=== PATIENT | male | born 1950 | race Caucasian/White ===

== ENCOUNTER 2019-08-03 11:13 | Inpatient (IN) | payer OTHER ==
[~2019-08-03] VITALS: Ht 182.9 cm; Wt 105.5 kg
[~2019-08-03 11:13] MED LIST: ALBU8.5H8 IH; ALLO100T PO; ALPR-623 PO; AMMO225L14 TL; CARV-50 PO; CETI10TA15 PO; CHOL100046 PO; CYAN500T15 PO; DOCU100C40 PO; GABA-530 PO; LEVO100T9 PO; LEVO25TA7 PO; LOSA50TA3 PO; METF500T20 PO; MUPI22OI30 TOP; NITR0.4T48 SL; OMEG500C PO; OMEP20CA15 PO; PARO40TA4 PO; RIVA20TA PO; ROSU40TA PO
--- NOTE | 2019-08-03 11:38 | NUR ---
bladder scan completed at bedside showed volume of 334 ml. Pt has granados cath in place MOLDER FLOOR, pt reports poor drainage x 3 days. Pt has noticed blood clots.
[2019-08-03] MEDS ORDERED: normal saline 1000ML IV soln IV ONE (12:25)
[2019-08-03] MEDS ORDERED: vancomycin/NS 1 GM ADD-VANTAGE 250 ML IV ONE (12:25)
[2019-08-03] MEDS ORDERED: CefTRIAXone 2gm/D5W 50ml 50 ML IV ONE (12:25)
[2019-08-03] MEDS ORDERED: ondansetron/PF 4mg/2ml inj IV ONE (12:50)
[2019-08-03] MEDS ORDERED: morphine 4 MG/ML inj SYRINge IV ONE (12:50)
[2019-08-03 12:58] LABS: BASOPHILS # (AUTO) 0.1 X10'3 (0-0.2); BASOPHILS % (AUTO) 0.6 % (0-1); EOSINOPHILS % (AUTO) 0.4 % (0-6); HEMATOCRIT 34.8 % (42.0-52.0); HEMOGLOBIN 11.2 g/dl (14.0-17.9); LYMPHOCYTES # (AUTO) 1.4 X10'3 (1.1-4.8); LYMPHOCYTES % (AUTO) 11.2 % (21-51); MEAN CORPUSCULAR HEMOGLOBIN 30.6 PG (27.0-31.0); MEAN CORPUSCULAR HGB CONC 32.2 g/dL (33.0-36.5); MEAN CORPUSCULAR VOLUME 95.3 FL (78-98); MEAN PLATELET VOLUME 9.1 FL (7.4-10.4); MONOCYTES # (AUTO) 1.2 X10'3 (0-0.9); MONOCYTES % (AUTO) 9.3 % (2-12); NEUTROPHILS % (AUTO) 78.5 % (42-75); PLATELET COUNT 525 X10'3 (140-440); RED BLOOD COUNT 3.65 X10'6 (4.70-6.10); RED CELL DISTRIBUTION WIDTH 16.9 % (11.5-14.5); WHITE BLOOD COUNT 12.7 X10'3 (4.5-11.0)
[2019-08-03 13:06] LABS: PARTIAL THROMBOPLASTIN TIME 29 SECONDS (22-32)
[2019-08-03 13:17] LABS: ALANINE AMINOTRANSFERASE 24 U/L (12-78); ALBUMIN/GLOBULIN RATIO 0.5 (1.1-1.5); ALKALINE PHOSPHATASE 62 IU/L (46-116); ANION GAP 19 (8-16); ASPARTATE AMINO TRANSFERASE 42 U/L (10-37); BILIRUBIN,TOTAL 0.6 MG/DL (0.1-1.0); BLOOD UREA NITROGEN 55 MG/DL (7-18); BUN/CREATININE RATIO 15.7 (5.4-32.0); CHLORIDE 103 MMOL/L (99-107); GLUCOSE 107 MG/DL (70-104); POTASSIUM 4.5 MMOL/L (3.5-5.1); SODIUM 138 MMOL/L (135-145); TOTAL CARBON DIOXIDE 15.9 MMOL/L (24-32); TOTAL PROTEIN 8.9 G/DL (6.4-8.2); eGFR 17 ML/MIN
[2019-08-03 13:20] LABS: HEMOGLOBIN A1C 6.5 % (4.5-6.2)
[2019-08-03 13:22] LABS: MAGNESIUM 1.8 MG/DL (1.5-2.4)
[2019-08-03] MEDS ORDERED: diltiazem 5mg/ml 5ml inj. IV ONE (13:55)
[2019-08-03] MEDS ORDERED: LIDOcaine 2% 10ml TOPICAL JELLY (Urojet) TP ONE (16:30)
[2019-08-03 16:46] LABS: CLARITY,URINE CLOUDY (Clear); COLOR,URINE RED (Yellow)
[2019-08-03 17:08] LABS: UA COLLECTION TYPE FOLEY CATH
[2019-08-03 17:10] LABS: RBC,URINE TNTC /HPF (0-2); WBC,URINE 50-100 /HPF (0-4)
[2019-08-03 17:11] LABS: BACTERIA,URINE 1+ /HPF (Neg); MUCUS STRANDS FEW /LPF (Neg); SQUAMOUS EPITHELIAL CELL,UR FEW /LPF (FEW)
[2019-08-03] MEDS ORDERED: FURO-150 PO (17:45)
[2019-08-03] MEDS ORDERED: LEVO75TA7 PO (17:45)
[2019-08-03] MEDS ORDERED: MYL80T PO (17:45)
[2019-08-03] MEDS ORDERED: POTA-82 PO (17:45)
[2019-08-03] MEDS ORDERED: METO200T49 PO (17:45)
[2019-08-03] MEDS ORDERED: RIVA20TA PO (17:45)
[2019-08-03] MEDS ORDERED: HYDR-4353 PO (17:45)
[2019-08-03] MEDS ORDERED: RANI150T8 PO (17:45)
[2019-08-03] MEDS ORDERED: magnesium hydroxide 30ml (MOM) UD suspension PO PRN (19:25)
[2019-08-03] MEDS ORDERED: magnesium 2GM in 50ml NS 50 ML IV PRN (19:25)
[2019-08-03] MEDS ORDERED: magnesium 4gm in 100ml NS 100 ML IV PRN (19:25)
[2019-08-03] MEDS ORDERED: ondansetron/PF 4mg/2ml inj IV PRN (19:25)
[2019-08-03] MEDS ORDERED: potassium CL 10mEq/100ml bag 100 ML IV PRN ×2 (19:25)
[2019-08-03] MEDS ORDERED: potassium Cl 20 mEq SR tablet PO PRN ×2 (19:25)
[2019-08-03] MEDS ORDERED: magnesium Cl slow-release 64mg tablet PO PRN (19:25)
[2019-08-03] MEDS ORDERED: acetaminophen 325mg tablet PO PRN (19:25)
[2019-08-03] MEDS: K and/or MAG REPLACEMENT MC SCH (19:53)
[2019-08-03] MEDS: morphine 2 MG/ML inj. syringe IV PRN (20:06)
[2019-08-03 21:00] VITALS: BP 153/75
[2019-08-03] MEDS: potassium cl 20mEq in 1/2 NS 1,000 ML IV SCH (21:34)
[2019-08-03] MEDS ORDERED: dextrose 50%-water 50ml dispensing syringe IV PRN ×2 (22:25)
[2019-08-03] MEDS ORDERED: MESSAGE TO PHARMACY PO ONE (22:25)
[2019-08-03] MEDS ORDERED: insulin Lispro (HumaLOG) vial - multi-dose SQ SCH (22:25)
[2019-08-03] MEDS ORDERED: glucagon, human recombinant 1mg kit SUBCUT PRN (22:25)
[2019-08-03] MEDS ORDERED: dextrose ORAL solution 15 GM/59 ML bottle PO PRN ×2 (22:25)
[2019-08-04] VITALS: BP 101/61
[2019-08-04] MEDS: HYDROcodone/acetaminophen 5mg/325mg tablet PO PRN ×2 (00:22→20:13)
[2019-08-04 05:22] LABS: BASOPHILS # (AUTO) 0.1 X10'3 (0-0.2); BASOPHILS % (AUTO) 0.9 % (0-1); EOSINOPHILS # (AUTO) 0.3 X10'3 (0-0.9); EOSINOPHILS % (AUTO) 3.4 % (0-6); HEMATOCRIT 28.5 % (42.0-52.0); HEMOGLOBIN 9.3 g/dl (14.0-17.9); LYMPHOCYTES # (AUTO) 1.6 X10'3 (1.1-4.8); LYMPHOCYTES % (AUTO) 17.5 % (21-51); MEAN CORPUSCULAR HEMOGLOBIN 30.9 PG (27.0-31.0); MEAN CORPUSCULAR HGB CONC 32.7 g/dL (33.0-36.5); MEAN CORPUSCULAR VOLUME 94.4 FL (78-98); MEAN PLATELET VOLUME 8.8 FL (7.4-10.4); MONOCYTES # (AUTO) 1.2 X10'3 (0-0.9); MONOCYTES % (AUTO) 12.9 % (2-12); NEUTROPHILS # (AUTO) 6.2 X10'3 (1.8-7.7); NEUTROPHILS % (AUTO) 65.3 % (42-75); PLATELET COUNT 405 X10'3 (140-440); RED BLOOD COUNT 3.02 X10'6 (4.70-6.10); RED CELL DISTRIBUTION WIDTH 16.8 % (11.5-14.5); WHITE BLOOD COUNT 9.4 X10'3 (4.5-11.0)
[2019-08-04] MEDS: potassium cl 20mEq in 1/2 NS 1,000 ML IV SCH ×3 (05:22→23:47)
--- NOTE | 2019-08-04 06:15 | NUR ---
Problems reprioritized. Patient report given, questions answered & plan of care reviewed with Sydnie KEE. Addendum: 08/04/19 at 0615 by Griselda Wolfe RN Amended: Links added.
[2019-08-04 06:26] LABS: % IRON SATURATION 7 % (11-46); IRON 20 UG/DL (53-167); TOTAL IRON BINDING CAPACITY 296 UG/DL (259-388)
[2019-08-04 06:42] LABS: ALANINE AMINOTRANSFERASE 23 U/L (12-78); ALBUMIN 2.4 G/DL (3.4-5.0); ALBUMIN/GLOBULIN RATIO 0.5 (1.1-1.5); ALKALINE PHOSPHATASE 52 IU/L (46-116); ANION GAP 14 (8-16); ASPARTATE AMINO TRANSFERASE 41 U/L (10-37); BILIRUBIN,TOTAL 0.4 MG/DL (0.1-1.0); BLOOD UREA NITROGEN 47 MG/DL (7-18); BUN/CREATININE RATIO 24.5 (5.4-32.0); CALCIUM 8.5 MG/DL (8.5-10.1); CHLORIDE 107 MMOL/L (99-107); CHOL/HDL RATIO 2.4 (0.00-4.99); CHOLESTEROL 92 MG/DL (0-200); CREATININE 1.92 MG/DL (0.60-1.10); GLUCOSE 94 MG/DL (70-104); HDL CHOLESTEROL 39 MG/DL (35-60); LDL CHOLESTEROL 39 MG/DL (50-100); MAGNESIUM 1.6 MG/DL (1.5-2.4); SODIUM 138 MMOL/L (135-145); TOTAL CARBON DIOXIDE 16.6 MMOL/L (24-32); TOTAL PROTEIN 7.1 G/DL (6.4-8.2); TRIGLYCERIDES 75 MG/DL (20-135); eGFR 35 ML/MIN
--- NOTE | 2019-08-04 06:49 | NUR ---
Patient in room [facility]. I have received report from faustina KEE and had the opportunity to ask questions and assume patient care.
[2019-08-04 06:51] LABS: FERRITIN 88 NG/ML (26-388)
[2019-08-04 06:56] VITALS: BP 108/72
[2019-08-04] MEDS: CefTRIAXone/D5W-Rocephin 1gm 50 ML IV SCH (07:08)
[2019-08-04] MEDS: K and/or MAG REPLACEMENT MC SCH ×2 (08:00→20:00)
[2019-08-04] MEDS ORDERED: heparin, porcine 5000 units/ml vial SQ SCH (08:00)
[2019-08-04 12:12] VITALS: BP 93/71
[2019-08-04] MEDS ORDERED: VANCOMYCIN 1,500MG inj. 1,500 MG in normal saline 500ml IV soln 500 ML IV SCH (16:00)
--- NOTE | 2019-08-04 16:24 | NUR ---
patient continues with hematuria, confused at times. PBNP 3398, HR 108-128 , home meds still need addressing, DR Hauser aware. Continues with Rocephin and started on Vancomycin. Ambulated with PT 300ft. Did obtain prn order for sitter if patient continues to become more confused. Spoke with family member, and went through verifying last taken doses of home meds.. Awaiting any new orders from DR Hauser. will continue to monitor.
--- NOTE | 2019-08-04 16:28 | NUR ---
EKG done and showed to Dr yao.
--- NOTE | 2019-08-04 18:11 | NUR ---
Problems reprioritized. Patient report given, questions answered & plan of care reviewed with faustina KEE.
[2019-08-04 19:00] VITALS: BP 123/63
[2019-08-04 19:43] LABS: OCCULT BLOOD STOOL POSITIVE (Neg)
[2019-08-04] MEDS: lactobacillus rhamnosus 10,000 MMU CELLS/CAPSULE PO SCH (20:12)
--- NOTE | 2019-08-04 20:35 | NUR ---
Dr. Sorenson notified of pts Occult (+), she is aware of hematuria, and Afib. order to d/c heparin SQ and place SCDs for now. Will continue to monitor and treat. Addendum: 08/04/19 at 2035 by Griselda Wolfe RN Amended: Links added.
[2019-08-04] MEDS: insulin glargine (Lantus) pen - multi-dose SQ SCH (21:00)
[2019-08-04 23:55] VITALS: BP 131/64
[2019-08-05] MEDS: mag hydrox/Alum hydrox/simeth 30ml oral suspension PO PRN ×2 (01:08→17:18)
[2019-08-05] MEDS: HYDROcodone/acetaminophen 5mg/325mg tablet PO PRN (02:29)
[2019-08-05 07:00] VITALS: BP 136/81
[2019-08-05] MEDS: lactobacillus rhamnosus 10,000 MMU CELLS/CAPSULE PO SCH ×2 (07:21→19:33)
[2019-08-05] MEDS: CefTRIAXone/D5W-Rocephin 1gm 50 ML IV SCH (07:21)
[2019-08-05 07:40] VITALS: BP 136/81
[2019-08-05] MEDS: K and/or MAG REPLACEMENT MC SCH ×2 (08:00→18:57)
--- NOTE | 2019-08-05 09:50 | NUR ---
NOTIFIED DR GUNN RE HEMATURIA. STATES SHE WILL CONSULT UROLOGY.
[2019-08-05] MEDS: potassium cl 20mEq in 1/2 NS 1,000 ML IV SCH ×2 (10:01→19:34)
[2019-08-05 11:15] LABS: BASOPHILS % (AUTO) 0.4 % (0-1); EOSINOPHILS # (AUTO) 0.1 X10'3 (0-0.9); EOSINOPHILS % (AUTO) 1.3 % (0-6); HEMATOCRIT 31.3 % (42.0-52.0); HEMOGLOBIN 10.2 g/dl (14.0-17.9); LYMPHOCYTES # (AUTO) 1.4 X10'3 (1.1-4.8); LYMPHOCYTES % (AUTO) 13.7 % (21-51); MEAN CORPUSCULAR HEMOGLOBIN 30.9 PG (27.0-31.0); MEAN CORPUSCULAR HGB CONC 32.6 g/dL (33.0-36.5); MEAN CORPUSCULAR VOLUME 94.8 FL (78-98); MEAN PLATELET VOLUME 8.7 FL (7.4-10.4); MONOCYTES # (AUTO) 1.2 X10'3 (0-0.9); MONOCYTES % (AUTO) 11.7 % (2-12); NEUTROPHILS # (AUTO) 7.7 X10'3 (1.8-7.7); NEUTROPHILS % (AUTO) 72.9 % (42-75); PLATELET COUNT 424 X10'3 (140-440); RED CELL DISTRIBUTION WIDTH 16.6 % (11.5-14.5); WHITE BLOOD COUNT 10.6 X10'3 (4.5-11.0)
[2019-08-05 11:28] LABS: ALANINE AMINOTRANSFERASE 31 U/L (12-78); ALBUMIN 2.6 G/DL (3.4-5.0); ALBUMIN/GLOBULIN RATIO 0.5 (1.1-1.5); ALKALINE PHOSPHATASE 60 IU/L (46-116); ANION GAP 10 (8-16); ASPARTATE AMINO TRANSFERASE 53 U/L (10-37); BILIRUBIN,TOTAL 0.4 MG/DL (0.1-1.0); BLOOD UREA NITROGEN 22 MG/DL (7-18); BUN/CREATININE RATIO 17.3 (5.4-32.0); CALCIUM 8.5 MG/DL (8.5-10.1); CHLORIDE 106 MMOL/L (99-107); CREATININE 1.27 MG/DL (0.60-1.10); GLUCOSE 110 MG/DL (70-104); MAGNESIUM 1.8 MG/DL (1.5-2.4); POTASSIUM 4.2 MMOL/L (3.5-5.1); SODIUM 137 MMOL/L (135-145); TOTAL CARBON DIOXIDE 20.9 MMOL/L (24-32); TOTAL PROTEIN 8.1 G/DL (6.4-8.2); eGFR 56 ML/MIN
[2019-08-05 12:01] VITALS: BP 132/82
[2019-08-05] MEDS: VANCOMYCIN 1,500MG inj. 1,500 MG in normal saline 500ml IV soln 500 ML IV SCH (13:41)
--- NOTE | 2019-08-05 14:49 | NUR ---
IRRIGATED FC WITH 60 MLS NS. NO BLOOD CLOTS ASPIRATED AT THIS TIME. WILL CONT TO MONITOR.
--- NOTE | 2019-08-05 16:15 | NUR ---
PAGED DR GUNN AT [id number] TO NOTIFY PT HR 130-150S AND MED REC NEEDS TO BE ADDRESSED. NO RESPONSE AT THIS TIME
[2019-08-05 16:30] VITALS: BP 169/94
--- NOTE | 2019-08-05 16:39 | NUR ---
SPOKE WITH DR GUNN RE HR 130-150s PER TELE. GOT AN ORDER FOR 12 LEAD EKG
[2019-08-05] MEDS ORDERED: simethicone 80mg chew tab PO PRN (16:45)
[2019-08-05] MEDS ORDERED: HYDROcodone/acetaminophen 10/325mg tab PO PRN (16:45)
[2019-08-05] MEDS ORDERED: albuterol 2.5 MG/3 ML nebule NEB PRN (16:55)
[2019-08-05] MEDS: allopurinol 100mg tablet PO SCH (17:18)
[2019-08-05] MEDS: losartan 50mg tablet PO SCH (17:18)
[2019-08-05] MEDS: levoTHYROXINE 75mcg tablet PO SCH (17:18)
[2019-08-05] MEDS: furosemide 20MG tablet PO SCH (17:18)
--- NOTE | 2019-08-05 18:22 | NUR ---
Problems reprioritized. Patient report given, questions answered & plan of care reviewed with MARIANA KEE.
[2019-08-05] MEDS: famotidine 20mg tablet PO SCH (19:34)
[2019-08-05 20:00] VITALS: BP 140/82
[2019-08-05] MEDS: metoprolol succinate 25mg (24-HOUR) SR. Tablet PO SCH (20:01)
[2019-08-05] MEDS: morphine 2 MG/ML inj. syringe IV PRN (20:10)
[2019-08-05] MEDS: insulin glargine (Lantus) pen - multi-dose SQ SCH (21:00)
[2019-08-06] VITALS (7 sets, daily range): BP systolic 126–167; BP diastolic 57–147
[2019-08-06] MEDS: VANCOMYCIN 1,500MG inj. 1,500 MG in normal saline 500ml IV soln 500 ML IV SCH ×2 (00:09→13:29)
--- NOTE | 2019-08-06 00:20 | NUR ---
Clots found during hand irrigation. f/c with dark letty blood in tube Addendum: 08/06/19 at 0049 by Griselda Wolfe RN Amended: Links added.
--- NOTE | 2019-08-06 04:20 | NUR ---
Clots with irrigation pt handled procedure well. Still confused Addendum: 08/06/19 at 0453 by Griselda Wolfe RN Amended: Links added.
[2019-08-06 05:34] LABS: BASOPHILS # (AUTO) 0.1 X10'3 (0-0.2); BASOPHILS % (AUTO) 0.7 % (0-1); EOSINOPHILS # (AUTO) 0.1 X10'3 (0-0.9); EOSINOPHILS % (AUTO) 1.4 % (0-6); HEMATOCRIT 26.5 % (42.0-52.0); HEMOGLOBIN 8.8 g/dl (14.0-17.9); LYMPHOCYTES # (AUTO) 1.2 X10'3 (1.1-4.8); LYMPHOCYTES % (AUTO) 13.9 % (21-51); MEAN CORPUSCULAR HEMOGLOBIN 31.2 PG (27.0-31.0); MEAN CORPUSCULAR HGB CONC 33.4 g/dL (33.0-36.5); MEAN CORPUSCULAR VOLUME 93.4 FL (78-98); MEAN PLATELET VOLUME 8.6 FL (7.4-10.4); MONOCYTES % (AUTO) 12.1 % (2-12); NEUTROPHILS # (AUTO) 6.1 X10'3 (1.8-7.7); NEUTROPHILS % (AUTO) 71.9 % (42-75); PLATELET COUNT 378 X10'3 (140-440); RED BLOOD COUNT 2.83 X10'6 (4.70-6.10); RED CELL DISTRIBUTION WIDTH 17.2 % (11.5-14.5); WHITE BLOOD COUNT 8.4 X10'3 (4.5-11.0)
[2019-08-06 06:13] LABS: ALANINE AMINOTRANSFERASE 31 U/L (12-78); ALBUMIN 2.2 G/DL (3.4-5.0); ALBUMIN/GLOBULIN RATIO 0.5 (1.1-1.5); ALKALINE PHOSPHATASE 53 IU/L (46-116); ANION GAP 11 (8-16); ASPARTATE AMINO TRANSFERASE 43 U/L (10-37); BILIRUBIN,TOTAL 0.7 MG/DL (0.1-1.0); BLOOD UREA NITROGEN 12 MG/DL (7-18); BUN/CREATININE RATIO 12.4 (5.4-32.0); CALCIUM 8.1 MG/DL (8.5-10.1); CHLORIDE 106 MMOL/L (99-107); CREATININE 0.97 MG/DL (0.60-1.10); GLUCOSE 114 MG/DL (70-104); MAGNESIUM 1.6 MG/DL (1.5-2.4); POTASSIUM 4.2 MMOL/L (3.5-5.1); SODIUM 136 MMOL/L (135-145); TOTAL CARBON DIOXIDE 19.3 MMOL/L (24-32); TOTAL PROTEIN 6.9 G/DL (6.4-8.2); eGFR 77 ML/MIN
--- NOTE | 2019-08-06 06:13 | NUR ---
Problems reprioritized. Patient report given, questions answered & plan of care reviewed with Chema. Addendum: 08/06/19 at 0613 by Griselda Wolfe RN Amended: Links added.
--- NOTE | 2019-08-06 06:26 | NUR ---
Patient in room [facility]. I have received report from CHILANGO Villalobos and had the opportunity to ask questions and assume patient care.
[2019-08-06] MEDS: K and/or MAG REPLACEMENT MC SCH ×2 (07:00→20:00)
[2019-08-06] MEDS: levoTHYROXINE 75mcg tablet PO SCH (07:08)
[2019-08-06] MEDS: potassium Cl 20 mEq SR tablet PO SCH (07:08)
[2019-08-06] MEDS: losartan 50mg tablet PO SCH (07:08)
[2019-08-06] MEDS: furosemide 20MG tablet PO SCH (07:08)
[2019-08-06] MEDS: famotidine 20mg tablet PO SCH ×2 (07:08→19:47)
[2019-08-06] MEDS: CefTRIAXone/D5W-Rocephin 1gm 50 ML IV SCH (07:09)
[2019-08-06] MEDS: PARoxetine 20mg tablet PO SCH (07:09)
[2019-08-06] MEDS: lactobacillus rhamnosus 10,000 MMU CELLS/CAPSULE PO SCH ×2 (07:09→19:46)
[2019-08-06] MEDS: allopurinol 100mg tablet PO SCH (07:09)
[2019-08-06] MEDS: potassium cl 20mEq in 1/2 NS 1,000 ML IV SCH ×2 (07:22→11:50)
--- NOTE | 2019-08-06 11:47 | NUR ---
PAGER ID: [phone] MESSAGE: [id number] Taran Dodd: BP 165/106, HR 100 Chema RN Ext [phone]
[2019-08-06] MEDS ORDERED: hydrALAZINE 20mg/ml inj. IV PRN (11:55)
[2019-08-06] MEDS ORDERED: VANCOMYCIN LEVEL IV ONE (15:30)
--- NOTE | 2019-08-06 16:11 | NUR ---
DM Consult: Pt A1C less than 7 and not appropriate for DM ed at this time. Addendum: 08/06/19 at [address] Amended: Links added.
--- NOTE | 2019-08-06 18:30 | NUR ---
Patient in room [facility]. I have received report from CHILANGO Bear and had the opportunity to ask questions and assume patient care.
--- NOTE | 2019-08-06 18:39 | NUR ---
Problems reprioritized. Patient report given, questions answered & plan of care reviewed with CHILANGO Garrett.
--- NOTE | 2019-08-06 19:00 | NUR ---
Pt tele to be removed at 2200; pt has afib with frequent heart rate 145. Received order from MD to keep tele on, xanax 0.5 mg for increased anxiety. Advised temp 101.1 with low grade fever all day. Confirmed MD did not want another set of blood cultures prior to receiving acetaminophen.
[2019-08-06] MEDS ORDERED: ALPRAZolam 0.25mg tablet PO ONE (19:30)
[2019-08-06] MEDS: metoprolol succinate 25mg (24-HOUR) SR. Tablet PO SCH (20:30)
[2019-08-06] MEDS: insulin glargine (Lantus) pen - multi-dose SQ SCH (21:00)
[2019-08-07] MEDS: VANCOMYCIN 1,500MG inj. 1,500 MG in normal saline 500ml IV soln 500 ML IV SCH (00:03)
[2019-08-07] MEDS: potassium cl 20mEq in 1/2 NS 1,000 ML IV SCH ×2 (00:03→14:17)
[2019-08-07 00:26] VITALS: BP 114/79
[2019-08-07] MEDS ORDERED: VANCOMYCIN LEVEL IV ONE (00:30)
[2019-08-07 00:35] LABS: BASOPHILS # (AUTO) 0.1 X10'3 (0-0.2); BASOPHILS % (AUTO) 0.6 % (0-1); EOSINOPHILS # (AUTO) 0.1 X10'3 (0-0.9); EOSINOPHILS % (AUTO) 1.1 % (0-6); HEMATOCRIT 28.5 % (42.0-52.0); HEMOGLOBIN 9.3 g/dl (14.0-17.9); LYMPHOCYTES # (AUTO) 1.7 X10'3 (1.1-4.8); LYMPHOCYTES % (AUTO) 18.4 % (21-51); MEAN CORPUSCULAR HEMOGLOBIN 31.1 PG (27.0-31.0); MEAN CORPUSCULAR HGB CONC 32.8 g/dL (33.0-36.5); MEAN CORPUSCULAR VOLUME 94.7 FL (78-98); MEAN PLATELET VOLUME 8.8 FL (7.4-10.4); MONOCYTES # (AUTO) 1.1 X10'3 (0-0.9); MONOCYTES % (AUTO) 11.7 % (2-12); NEUTROPHILS # (AUTO) 6.3 X10'3 (1.8-7.7); NEUTROPHILS % (AUTO) 68.2 % (42-75); PLATELET COUNT 384 X10'3 (140-440); RED CELL DISTRIBUTION WIDTH 16.9 % (11.5-14.5); WHITE BLOOD COUNT 9.3 X10'3 (4.5-11.0)
[2019-08-07 00:51] LABS: ALANINE AMINOTRANSFERASE 34 U/L (12-78); ALBUMIN 2.4 G/DL (3.4-5.0); ALBUMIN/GLOBULIN RATIO 0.5 (1.1-1.5); ALKALINE PHOSPHATASE 67 IU/L (46-116); ANION GAP 6 (8-16); ASPARTATE AMINO TRANSFERASE 48 U/L (10-37); BILIRUBIN,TOTAL 0.7 MG/DL (0.1-1.0); BLOOD UREA NITROGEN 12 MG/DL (7-18); BUN/CREATININE RATIO 10.3 (5.4-32.0); CALCIUM 8.6 MG/DL (8.5-10.1); CHLORIDE 107 MMOL/L (99-107); CREATININE 1.17 MG/DL (0.60-1.10); GLUCOSE 108 MG/DL (70-104); MAGNESIUM 1.9 MG/DL (1.5-2.4); POTASSIUM 4.4 MMOL/L (3.5-5.1); SODIUM 135 MMOL/L (135-145); TOTAL CARBON DIOXIDE 22.5 MMOL/L (24-32); TOTAL PROTEIN 7.6 G/DL (6.4-8.2); eGFR 62 ML/MIN
[2019-08-07 00:53] LABS: VANCOMYCIN,TROUGH 22.9 UG/ML (6.0-14.0)
--- NOTE | 2019-08-07 01:13 | NUR ---
Barringtono trough 22.9, spoke to Maribeth in pharmacy. Stated to run current dose and will adjust to once a day in AM.
--- NOTE | 2019-08-07 01:20 | NUR ---
Vanco Trough 22.9, Dr. Saunders agrees to run current dose of vanco and adjust dose in AM to once daily. Also received order for PRN ativan as patient is pulling at lines, granados catheter, and removing telemetry while being combative with the sitter.
[2019-08-07] MEDS: LORazepam 1 MG tablet PO PRN ×2 (01:23→09:19)
--- NOTE | 2019-08-07 02:10 | NUR ---
Pt became combative and attempting to get out of bed with lines/fc. Attempted to get pt into bed and irrigate granados catheter to ensure is was not occluded. Security called for reinforcement. Pt attempted to swing and RN showroom sales assistant and security and made several verbal threats. Restrained patient and positioned in bed for comfort. Hand irrigated granados catheter to ensure it was not occluded. Small clots noted; however; no change from previous. Granados catheter free flowing with small clots and adequate urine output.
--- NOTE | 2019-08-07 06:16 | NUR ---
Problems reprioritized. Patient report given, questions answered & plan of care reviewed with CHILANGO Escudero.
--- NOTE | 2019-08-07 06:21 | NUR ---
Received report from Judith KEE
[2019-08-07 07:12] VITALS: BP 148/92
[2019-08-07] MEDS: K and/or MAG REPLACEMENT MC SCH ×2 (08:00→20:00)
[2019-08-07] MEDS: CefTRIAXone/D5W-Rocephin 1gm 50 ML IV SCH (08:05)
[2019-08-07] MEDS: losartan 50mg tablet PO SCH (08:05)
[2019-08-07] MEDS: levoTHYROXINE 75mcg tablet PO SCH (08:17)
[2019-08-07] MEDS: famotidine 20mg tablet PO SCH ×2 (08:17→20:29)
[2019-08-07] MEDS: allopurinol 100mg tablet PO SCH (08:17)
[2019-08-07] MEDS: furosemide 20MG tablet PO SCH (08:17)
[2019-08-07] MEDS: PARoxetine 20mg tablet PO SCH (08:17)
[2019-08-07] MEDS: potassium Cl 20 mEq SR tablet PO SCH (08:17)
[2019-08-07] MEDS: lactobacillus rhamnosus 10,000 MMU CELLS/CAPSULE PO SCH ×2 (08:25→20:29)
[2019-08-07 11:43] VITALS: BP 129/72
[2019-08-07] MEDS ORDERED: VANCOmycin 1250MG/NS 250ml Bag 250 ML IV SCH (13:00)
--- NOTE | 2019-08-07 18:15 | NUR ---
Patient in room [facility]. I have received report from CHILANGO Escudero and had the opportunity to ask questions and assume patient care.
[2019-08-07 19:37] VITALS: BP 137/100
[2019-08-07] MEDS: metoprolol succinate 25mg (24-HOUR) SR. Tablet PO SCH (20:29)
[2019-08-07] MEDS: insulin glargine (Lantus) pen - multi-dose SQ SCH (21:00)
[2019-08-07 23:58] VITALS: BP 149/90
--- NOTE | 2019-08-08 05:08 | NUR ---
Balloon port on granados catheter broke off causing fluid to flow free. Granados catheter dislodged. Spoke with Dr. Mooney who states to replace catheter of same size; no coude or special catheter required. Must use same size. Granados catheter dislodged was 18g. Will replace.
--- NOTE | 2019-08-08 06:30 | NUR ---
Patient in room [facility]. I have received report from Janel KEE and had the opportunity to ask questions and assume patient care.
--- NOTE | 2019-08-08 06:33 | NUR ---
Problems reprioritized. Patient report given, questions answered & plan of care reviewed with CHILANGO Matta.
[2019-08-08 06:45] LABS: BASOPHILS # (AUTO) 0.1 X10'3 (0-0.2); BASOPHILS % (AUTO) 0.9 % (0-1); EOSINOPHILS # (AUTO) 0.3 X10'3 (0-0.9); EOSINOPHILS % (AUTO) 2.9 % (0-6); HEMATOCRIT 26.7 % (42.0-52.0); HEMOGLOBIN 8.9 g/dl (14.0-17.9); LYMPHOCYTES # (AUTO) 1.7 X10'3 (1.1-4.8); LYMPHOCYTES % (AUTO) 18.8 % (21-51); MEAN CORPUSCULAR HEMOGLOBIN 31.3 PG (27.0-31.0); MEAN CORPUSCULAR HGB CONC 33.5 g/dL (33.0-36.5); MEAN CORPUSCULAR VOLUME 93.5 FL (78-98); MEAN PLATELET VOLUME 9.4 FL (7.4-10.4); MONOCYTES # (AUTO) 0.9 X10'3 (0-0.9); MONOCYTES % (AUTO) 9.3 % (2-12); NEUTROPHILS # (AUTO) 6.2 X10'3 (1.8-7.7); NEUTROPHILS % (AUTO) 68.1 % (42-75); PLATELET COUNT 402 X10'3 (140-440); RED BLOOD COUNT 2.86 X10'6 (4.70-6.10); RED CELL DISTRIBUTION WIDTH 17.1 % (11.5-14.5); WHITE BLOOD COUNT 9.1 X10'3 (4.5-11.0)
[2019-08-08 06:49] LABS: ALANINE AMINOTRANSFERASE 99 U/L (12-78); ALBUMIN 2.2 G/DL (3.4-5.0); ALBUMIN/GLOBULIN RATIO 0.4 (1.1-1.5); ALKALINE PHOSPHATASE 63 IU/L (46-116); ANION GAP 9 (8-16); ASPARTATE AMINO TRANSFERASE 171 U/L (10-37); BILIRUBIN,TOTAL 0.7 MG/DL (0.1-1.0); BLOOD UREA NITROGEN 19 MG/DL (7-18); BUN/CREATININE RATIO 15.4 (5.4-32.0); CALCIUM 8.3 MG/DL (8.5-10.1); CHLORIDE 107 MMOL/L (99-107); CREATININE 1.23 MG/DL (0.60-1.10); GLUCOSE 97 MG/DL (70-104); MAGNESIUM 1.8 MG/DL (1.5-2.4); POTASSIUM 4.7 MMOL/L (3.5-5.1); SODIUM 138 MMOL/L (135-145); TOTAL PROTEIN 7.2 G/DL (6.4-8.2); eGFR 58 ML/MIN
[2019-08-08 07:44] VITALS: BP 154/110
[2019-08-08] MEDS: K and/or MAG REPLACEMENT MC SCH ×2 (08:00→20:00)
[2019-08-08] MEDS: losartan 50mg tablet PO SCH (08:34)
[2019-08-08] MEDS: lactobacillus rhamnosus 10,000 MMU CELLS/CAPSULE PO SCH ×2 (08:34→20:22)
[2019-08-08] MEDS: potassium Cl 20 mEq SR tablet PO SCH (08:34)
[2019-08-08] MEDS: famotidine 20mg tablet PO SCH ×2 (08:34→20:22)
[2019-08-08] MEDS: PARoxetine 20mg tablet PO SCH (08:34)
[2019-08-08] MEDS: allopurinol 100mg tablet PO SCH (08:34)
[2019-08-08] MEDS: levoTHYROXINE 75mcg tablet PO SCH (08:34)
[2019-08-08] MEDS: furosemide 20MG tablet PO SCH (08:34)
--- NOTE | 2019-08-08 09:22 | NUR ---
Patient family stated that patient is being seen by physician urologist named Dr. Franco at the [facility]. Attempted to notify the urologist seeing patient in hospital but was unable to get into contact with her. Well attmept call again soon
[2019-08-08 09:50] LABS: PLATELET ESTIMATE NORMAL
[2019-08-08 09:53] LABS: BURR CELLS 1+; ELLIPTOCYTES FEW; SCHISTOCYTES FEW
[2019-08-08] MEDS: potassium cl 20mEq in 1/2 NS 1,000 ML IV SCH ×2 (10:17→17:35)
[2019-08-08 11:00] VITALS: BP 140/82
--- NOTE | 2019-08-08 13:42 | NUR ---
Initial: Pt admit with sepsis secondary to UTI and CELESTINA. Pt currently with restraints and a sitter d/t confusion and pt pulling at lines. Acute delirium likely d/t toxic encephalopathy per MD notes. Pt on a heart healthy diet documented with average 25% PO intake not meeting nutrient needs despite receiving assistance with meals. LBM 08/03, pt received first dose of PRN MoM 08/06. Confusion and constipation likely impacting appetite/PO intake. D/w dietary to send prunes with dinner tonight to assist with bowel regularity and hopefully increase appetite. Will continue to follow closely and monitor need for further nutrition intervention. Recommendations: 1) Continue heart healthy diet 2) Monitor need for ONS 3) Routine bowel care 4) Wt per rx Addendum: 08/08/19 at [address] Amended: Links added.
--- NOTE | 2019-08-08 18:15 | NUR ---
Patient in room [facility]. I have received report from CHILANGO Matta and had the opportunity to ask questions and assume patient care. Per report, Dr. Mooney states bladder irrigation can be completed PRN rather than q4hr. Will monitor urine output closely and assess for irrigation needs.
--- NOTE | 2019-08-08 18:35 | NUR ---
Problems reprioritized. Patient report given, questions answered & plan of care reviewed with Janel Blank RN.
[2019-08-08 20:00] VITALS: BP 148/96
[2019-08-08] MEDS: metoprolol succinate 25mg (24-HOUR) SR. Tablet PO SCH (20:22)
[2019-08-08] MEDS: insulin glargine (Lantus) pen - multi-dose SQ SCH (21:00)
[2019-08-08] MEDS: acetaminophen 325mg tablet PO PRN (23:23)
[2019-08-08 23:47] VITALS: BP 137/83
[2019-08-09] MEDS ORDERED: VANCOMYCIN LEVEL IV ONE (00:30)
--- NOTE | 2019-08-09 06:10 | NUR ---
Problems reprioritized. Patient report given, questions answered & plan of care reviewed with CHILANGO Matta.
--- NOTE | 2019-08-09 06:30 | NUR ---
Patient in room [facility]. I have received report from Janel Blank RN and had the opportunity to ask questions and assume patient care.
[2019-08-09 07:41] VITALS: BP 110/63
[2019-08-09] MEDS: PARoxetine 20mg tablet PO SCH (07:58)
[2019-08-09] MEDS: allopurinol 100mg tablet PO SCH (07:58)
[2019-08-09] MEDS: levoTHYROXINE 75mcg tablet PO SCH (07:58)
[2019-08-09] MEDS: potassium Cl 20 mEq SR tablet PO SCH (07:58)
[2019-08-09] MEDS: furosemide 20MG tablet PO SCH (07:58)
[2019-08-09] MEDS: lactobacillus rhamnosus 10,000 MMU CELLS/CAPSULE PO SCH ×2 (07:58→20:31)
[2019-08-09] MEDS: losartan 50mg tablet PO SCH (07:58)
[2019-08-09] MEDS: famotidine 20mg tablet PO SCH ×2 (07:58→20:32)
[2019-08-09] MEDS: K and/or MAG REPLACEMENT MC SCH ×2 (08:00→19:36)
[2019-08-09 11:22] VITALS: BP 122/70
[2019-08-09 12:54] LABS: ALBUMIN 2.2 G/DL (3.4-5.0); ANION GAP 7 (8-16); BLOOD UREA NITROGEN 19 MG/DL (7-18); BUN/CREATININE RATIO 16.1 (5.4-32.0); CALCIUM 8.3 MG/DL (8.5-10.1); CHLORIDE 107 MMOL/L (99-107); CREATININE 1.18 MG/DL (0.60-1.10); GLUCOSE 111 MG/DL (70-104); POTASSIUM 4.3 MMOL/L (3.5-5.1); SODIUM 138 MMOL/L (135-145); TOTAL CARBON DIOXIDE 24.1 MMOL/L (24-32); eGFR 61 ML/MIN
[2019-08-09] MEDS: acetaminophen 325mg tablet PO PRN (16:10)
[2019-08-09] MEDS: potassium cl 20mEq in 1/2 NS 1,000 ML IV SCH (16:44)
[2019-08-09 18:00] VITALS: BP 142/89
--- NOTE | 2019-08-09 18:11 | NUR ---
Received report from CHILANGO Matta. Patient is awake and alert on room air, in no apparent distress. Call light and items of frequent use within reach. Will continue to monitor. Sitter at bedside.
--- NOTE | 2019-08-09 18:38 | NUR ---
Problems reprioritized. Patient report given, questions answered & plan of care reviewed with Kianna KEE.
[2019-08-09] MEDS: metoprolol succinate 25mg (24-HOUR) SR. Tablet PO SCH (20:32)
[2019-08-09] MEDS: insulin glargine (Lantus) pen - multi-dose SQ SCH (21:50)
[2019-08-10] VITALS: BP 125/91
--- NOTE | 2019-08-10 06:31 | NUR ---
Problems reprioritized. Patient report given, questions answered & plan of care reviewed with CHILANGO Ding.
[2019-08-10 06:55] LABS: ALBUMIN 2.2 G/DL (3.4-5.0); ANION GAP 6 (8-16); BLOOD UREA NITROGEN 16 MG/DL (7-18); BUN/CREATININE RATIO 14.4 (5.4-32.0); CALCIUM 8.7 MG/DL (8.5-10.1); CHLORIDE 107 MMOL/L (99-107); CREATININE 1.11 MG/DL (0.60-1.10); GLUCOSE 91 MG/DL (70-104); MAGNESIUM 1.8 MG/DL (1.5-2.4); POTASSIUM 4.5 MMOL/L (3.5-5.1); SODIUM 138 MMOL/L (135-145); TOTAL CARBON DIOXIDE 25.1 MMOL/L (24-32); eGFR 65 ML/MIN
--- NOTE | 2019-08-10 07:06 | NUR ---
Patient in room [facility]. I have received report from CHILANGO Hutchison and had the opportunity to ask questions and assume patient care.
[2019-08-10 07:12] LABS: BASOPHILS # (AUTO) 0.1 X10'3 (0-0.2); BASOPHILS % (AUTO) 1.4 % (0-1); EOSINOPHILS # (AUTO) 0.5 X10'3 (0-0.9); EOSINOPHILS % (AUTO) 6.5 % (0-6); HEMATOCRIT 27.2 % (42.0-52.0); HEMOGLOBIN 8.8 g/dl (14.0-17.9); LYMPHOCYTES # (AUTO) 1.6 X10'3 (1.1-4.8); LYMPHOCYTES % (AUTO) 22.5 % (21-51); MEAN CORPUSCULAR HEMOGLOBIN 30.3 PG (27.0-31.0); MEAN CORPUSCULAR HGB CONC 32.2 g/dL (33.0-36.5); MEAN CORPUSCULAR VOLUME 94.2 FL (78-98); MEAN PLATELET VOLUME 9.4 FL (7.4-10.4); MONOCYTES # (AUTO) 1.1 X10'3 (0-0.9); NEUTROPHILS % (AUTO) 54.6 % (42-75); PLATELET COUNT 430 X10'3 (140-440); RED BLOOD COUNT 2.89 X10'6 (4.70-6.10); WHITE BLOOD COUNT 7.3 X10'3 (4.5-11.0)
[2019-08-10 07:54] VITALS: BP 147/93
[2019-08-10] MEDS: K and/or MAG REPLACEMENT MC SCH ×2 (08:00→19:10)
[2019-08-10] MEDS: levoTHYROXINE 75mcg tablet PO SCH (08:29)
[2019-08-10] MEDS: allopurinol 100mg tablet PO SCH (08:29)
[2019-08-10] MEDS: famotidine 20mg tablet PO SCH ×2 (08:29→21:03)
[2019-08-10] MEDS: losartan 50mg tablet PO SCH (08:29)
[2019-08-10] MEDS: PARoxetine 20mg tablet PO SCH (08:29)
[2019-08-10] MEDS: potassium Cl 20 mEq SR tablet PO SCH (08:29)
[2019-08-10] MEDS: lactobacillus rhamnosus 10,000 MMU CELLS/CAPSULE PO SCH ×2 (08:29→21:03)
[2019-08-10] MEDS: furosemide 20MG tablet PO SCH (08:29)
[2019-08-10 11:00] VITALS: BP 97/72
[2019-08-10] MEDS: potassium cl 20mEq in 1/2 NS 1,000 ML IV SCH (16:40)
[2019-08-10] MEDS: acetaminophen 325mg tablet PO PRN (16:52)
[2019-08-10 18:00] VITALS: BP 146/72
--- NOTE | 2019-08-10 19:04 | NUR ---
Problems reprioritized. Patient report given, questions answered & plan of care reviewed with Job Hutchison.
[2019-08-10] MEDS: insulin glargine (Lantus) pen - multi-dose SQ SCH (21:00)
[2019-08-10] MEDS: metoprolol succinate 25mg (24-HOUR) SR. Tablet PO SCH (21:03)
[2019-08-11 00:07] VITALS: BP 96/69
[2019-08-11 05:06] LABS: BASOPHILS # (AUTO) 0.1 X10'3 (0-0.2); BASOPHILS % (AUTO) 1.2 % (0-1); EOSINOPHILS # (AUTO) 0.3 X10'3 (0-0.9); EOSINOPHILS % (AUTO) 4.2 % (0-6); HEMATOCRIT 27.3 % (42.0-52.0); HEMOGLOBIN 8.9 g/dl (14.0-17.9); LYMPHOCYTES # (AUTO) 2.1 X10'3 (1.1-4.8); LYMPHOCYTES % (AUTO) 26.3 % (21-51); MEAN CORPUSCULAR HEMOGLOBIN 30.6 PG (27.0-31.0); MEAN CORPUSCULAR HGB CONC 32.4 g/dL (33.0-36.5); MEAN CORPUSCULAR VOLUME 94.4 FL (78-98); MEAN PLATELET VOLUME 8.9 FL (7.4-10.4); MONOCYTES # (AUTO) 1.2 X10'3 (0-0.9); MONOCYTES % (AUTO) 14.8 % (2-12); NEUTROPHILS # (AUTO) 4.3 X10'3 (1.8-7.7); NEUTROPHILS % (AUTO) 53.5 % (42-75); PLATELET COUNT 433 X10'3 (140-440); RED BLOOD COUNT 2.89 X10'6 (4.70-6.10); RED CELL DISTRIBUTION WIDTH 16.6 % (11.5-14.5)
[2019-08-11 05:26] LABS: ALBUMIN 2.2 G/DL (3.4-5.0); ANION GAP 7 (8-16); BLOOD UREA NITROGEN 14 MG/DL (7-18); BUN/CREATININE RATIO 12.5 (5.4-32.0); CALCIUM 8.2 MG/DL (8.5-10.1); CHLORIDE 106 MMOL/L (99-107); CREATININE 1.12 MG/DL (0.60-1.10); GLUCOSE 87 MG/DL (70-104); POTASSIUM 4.3 MMOL/L (3.5-5.1); SODIUM 139 MMOL/L (135-145); TOTAL CARBON DIOXIDE 26.2 MMOL/L (24-32); eGFR 65 ML/MIN
--- NOTE | 2019-08-11 06:15 | NUR ---
Problems reprioritized. Patient report given, questions answered & plan of care reviewed with Raysa KEE.
--- NOTE | 2019-08-11 06:16 | NUR ---
I have reviewed and agree with all interventions, assessments performed and documented by CHILANGO Gaines.
--- NOTE | 2019-08-11 06:38 | NUR ---
Patient in room [facility]. I have received report from CHILANGO Gaines and had the opportunity to ask questions and assume patient care.
[2019-08-11 07:00] VITALS: BP 108/74
[2019-08-11] MEDS: K and/or MAG REPLACEMENT MC SCH ×2 (08:00→20:00)
[2019-08-11] MEDS: allopurinol 100mg tablet PO SCH (08:03)
[2019-08-11] MEDS: lactobacillus rhamnosus 10,000 MMU CELLS/CAPSULE PO SCH ×2 (08:03→20:30)
[2019-08-11] MEDS: potassium Cl 20 mEq SR tablet PO SCH (08:03)
[2019-08-11] MEDS: levoTHYROXINE 75mcg tablet PO SCH (08:03)
[2019-08-11] MEDS: furosemide 20MG tablet PO SCH (08:03)
[2019-08-11] MEDS: PARoxetine 20mg tablet PO SCH (08:03)
[2019-08-11] MEDS: famotidine 20mg tablet PO SCH ×2 (08:04→20:30)
[2019-08-11] MEDS: losartan 50mg tablet PO SCH (08:04)
--- NOTE | 2019-08-11 10:47 | NUR ---
Reassessment: Patient's PO intake continues to be poor and and inadequate to meet needs. Average PO intake 25-49% PO intake with feeder. Per MD note patient has gross hematuria with granados catheter and recent findings of bladder tumor. Still is confused, may contribute to his poor intake. Recommend oral supplementation with ensure enlive in view of suboptimal PO intake, notified MD. Pt admit with sepsis secondary to UTI and CELESTINA. Pt with sitter. Acute delirium likely d/t toxic encephalopathy per MD notes. Last BM 08/06, small BMs since admission, possible constipation present. Last received milk of magnesia on 08/06, no routine bowel care. Pt may benefit from routine bowel care, notified MD. Confusion and constipation likely impacting appetite/PO intake. Recommendations: 1) Continue heart healthy diet 2) Consider routine bowel care in view of possible constipation 3) Recommend Ensure Enlive TID with meals in view of suboptimal PO intake 4) Wt per rx Addendum: 08/11/19 at [address] Amended: Links added.
[2019-08-11 12:00] VITALS: BP 105/61
[2019-08-11] MEDS: potassium cl 20mEq in 1/2 NS 1,000 ML IV SCH (12:23)
[2019-08-11] MEDS: lactose-reduced food (Ensure Enlive) - 237ml bottle PO SCH ×2 (13:00→18:30)
[2019-08-11] MEDS: acetaminophen 325mg tablet PO PRN (15:03)
[2019-08-11] MEDS: ceFAZolin 1GM/D5W- ADD-VANTAGE 50 ML IV SCH (16:37)
[2019-08-11] MEDS: HYDROcodone/acetaminophen 5mg/325mg tablet PO PRN (17:05)
[2019-08-11 18:00] VITALS: BP 97/66
--- NOTE | 2019-08-11 18:30 | NUR ---
Problems reprioritized. Patient report given, questions answered & plan of care reviewed with CHILANGO Best. Pt resting in bed, c/o increased pain to bladdler post bedside cystoscopy. pain med given PRN x2. Cameron cath patent on continues bledder irrigation; output reddish, no blood clots noted.
[2019-08-11] MEDS: docusate sod 250mg capsule PO SCH (20:30)
[2019-08-11] MEDS: metoprolol succinate 25mg (24-HOUR) SR. Tablet PO SCH (20:32)
[2019-08-11] MEDS: insulin glargine (Lantus) pen - multi-dose SQ SCH (21:00)
[2019-08-12] VITALS (19 sets, daily range): BP systolic 99–160; BP diastolic 65–96
[2019-08-12] MEDS: HYDROcodone/acetaminophen 5mg/325mg tablet PO PRN ×2 (00:40→23:11)
[2019-08-12] MEDS: ceFAZolin 1GM/D5W- ADD-VANTAGE 50 ML IV SCH ×3 (00:40→18:37)
[2019-08-12 05:30] LABS: BASOPHILS # (AUTO) 0.1 X10'3 (0-0.2); EOSINOPHILS # (AUTO) 0.4 X10'3 (0-0.9); EOSINOPHILS % (AUTO) 3.6 % (0-6); HEMATOCRIT 28.7 % (42.0-52.0); HEMOGLOBIN 9.2 g/dl (14.0-17.9); LYMPHOCYTES # (AUTO) 2.2 X10'3 (1.1-4.8); LYMPHOCYTES % (AUTO) 21.3 % (21-51); MEAN CORPUSCULAR HEMOGLOBIN 30.2 PG (27.0-31.0); MEAN CORPUSCULAR HGB CONC 32.2 g/dL (33.0-36.5); MEAN CORPUSCULAR VOLUME 93.9 FL (78-98); MEAN PLATELET VOLUME 9.2 FL (7.4-10.4); MONOCYTES # (AUTO) 1.4 X10'3 (0-0.9); MONOCYTES % (AUTO) 13.8 % (2-12); NEUTROPHILS # (AUTO) 6.1 X10'3 (1.8-7.7); NEUTROPHILS % (AUTO) 60.3 % (42-75); PLATELET COUNT 482 X10'3 (140-440); RED BLOOD COUNT 3.05 X10'6 (4.70-6.10); WHITE BLOOD COUNT 10.2 X10'3 (4.5-11.0)
[2019-08-12 05:33] LABS: ALBUMIN 2.3 G/DL (3.4-5.0); ANION GAP 6 (8-16); BLOOD UREA NITROGEN 16 MG/DL (7-18); BUN/CREATININE RATIO 12.6 (5.4-32.0); CALCIUM 8.6 MG/DL (8.5-10.1); CHLORIDE 105 MMOL/L (99-107); CREATININE 1.27 MG/DL (0.60-1.10); GLUCOSE 101 MG/DL (70-104); POTASSIUM 4.2 MMOL/L (3.5-5.1); SODIUM 138 MMOL/L (135-145); TOTAL CARBON DIOXIDE 27.2 MMOL/L (24-32); eGFR 56 ML/MIN
--- NOTE | 2019-08-12 06:25 | NUR ---
Patient in room [facility]. I have received report from CHILANGO GONZALEZ and had the opportunity to ask questions and assume patient care.
[2019-08-12] MEDS: docusate sod 250mg capsule PO SCH ×2 (08:00→20:00)
[2019-08-12] MEDS: famotidine 20mg tablet PO SCH ×2 (08:00→20:00)
[2019-08-12] MEDS: lactobacillus rhamnosus 10,000 MMU CELLS/CAPSULE PO SCH ×2 (08:00→20:00)
[2019-08-12] MEDS: furosemide 20MG tablet PO SCH (08:00)
[2019-08-12] MEDS: allopurinol 100mg tablet PO SCH (08:00)
[2019-08-12] MEDS: K and/or MAG REPLACEMENT MC SCH ×2 (08:00→20:00)
[2019-08-12] MEDS: PARoxetine 20mg tablet PO SCH (08:00)
[2019-08-12] MEDS: lactose-reduced food (Ensure Enlive) - 237ml bottle PO SCH ×3 (08:00→18:00)
[2019-08-12] MEDS: losartan 50mg tablet PO SCH (08:00)
[2019-08-12] MEDS: potassium Cl 20 mEq SR tablet PO SCH (08:00)
[2019-08-12] MEDS: levoTHYROXINE 75mcg tablet PO SCH (08:00)
[2019-08-12] MEDS ORDERED: ringers solution, lacted 1,000 ML IV SCH (09:23)
[2019-08-12] MEDS ORDERED: morphine 2 MG/ML inj. syringe IV PRN (09:25)
[2019-08-12] MEDS ORDERED: ondansetron/PF 4mg/2ml inj IV PRN (09:25)
[2019-08-12] MEDS ORDERED: sevoflurane 250ml liquid IH ONE (09:26)
[2019-08-12] MEDS ORDERED: propofol 10mg/ml 20ml vial IV ONE (09:26)
[2019-08-12] MEDS ORDERED: fentaNYL/PF 50MCG/1 ML 2ML syringe ONE ×2 (09:30→10:17)
[2019-08-12] MEDS ORDERED: glycopyrrolate 0.2mg/ml inj ONE (10:06)
[2019-08-12] MEDS ORDERED: neostigmine methylsulfate 1 MG/ML 10ml vial ONE (10:06)
[2019-08-12] MEDS ORDERED: ondansetron/PF 4mg/2ml inj ONE (10:06)
[2019-08-12] MEDS ORDERED: iohexol 300 MG/1 ML 50ml polymer ONE (10:58)
--- NOTE | 2019-08-12 11:24 | NUR ---
Received from OR via BED , accompanied by Anesthesiologist DR JOHNSON and report given by Anesthesiolgist. AWAKENING, VSS. IV LEFT FA #20 PATENT WITH LR @ 100MLS/HR. CONT BLADDER IRRIGATION WITH PALE PINK RETURN TO F/C WHICH IS SECURED TO LEFT LEG. SCD'S BILAT. ABD NONDISTENDED.
[2019-08-12] MEDS ORDERED: metoprolol tartrate 1mg/ml inj IV ONE (11:36)
[2019-08-12] MEDS ORDERED: phenylephrine 10mg/ml inj. ONE (11:36)
--- NOTE | 2019-08-12 11:40 | NUR ---
PT COMBATIVE, ATTEMPTING TO PULL OUT F/C. ATTEMPTED TO SPIT AT NURSE. HAD TO CALL IN 3 EXTRA PEOPLE TO PREVENT PT FROM HURTING HIMSELF OR OTHERS. DR JOHNSON NOTIFIED- ATIVAN IV ORDERED AND GIVEN AT 1145 (UNABLE TO SCAN MED AT THIS TIME R/T PT COMBATIVENESS). GOOD RESULTS WITH ATIVAN- VS STABLE - PT SLEEPING.
--- NOTE | 2019-08-12 12:05 | NUR ---
PT AWAKENED. ATTEMPTING TO PULL OUT F/C- STATES "I WANT TO GET UP" - NOT FOLLOWING DIRECTIONS, COMBATIVE TOWARDS STAFF. DILAUDID IV GIVEN X2 FOR PERCEIVED PAIN WITH GOOD RESULTS.
[2019-08-12] MEDS: HYDROmorphone inj. 0.5 MG/0.5 ML DISP.SYRIN IV PRN ×4 (12:13→17:59)
[2019-08-12] MEDS ORDERED: LORazepam 2 mg/ml vial ONE (12:30)
--- NOTE | 2019-08-12 12:34 | NUR ---
VSS, PT SLEEPING INTERMITTENTLY. CONT BLADDER IRRIGATION CONTINUES WITH PALE PINK RETURN. IV PATENT # 20 RIGHT FA. REPORT GIVEN TO JAQUELIN KEE WITH ALL QUESTIONS ANSWERED. TRANSFERRED TO [facility] VIA BED BY RN WITH RESOURCE NURSE IN THE ROOM TO RECEIVE THE PATIENT.
[2019-08-12] MEDS: potassium cl 20mEq in 1/2 NS 1,000 ML IV SCH (14:17)
--- NOTE | 2019-08-12 18:25 | NUR ---
Problems reprioritized. Patient report given, questions answered & plan of care reviewed with CHILANGO GONZALEZ.
[2019-08-12] MEDS ORDERED: LORazepam 2 mg/ml vial IV ONE (18:55)
[2019-08-12] MEDS ORDERED: opium/belladonna alkaloids No. 15A 30mg rectal suppository RC PRN (19:10)
[2019-08-12] MEDS: LORazepam 1 MG tablet PO PRN (20:30)
[2019-08-12] MEDS: metoprolol succinate 25mg (24-HOUR) SR. Tablet PO SCH (20:42)
[2019-08-12] MEDS: insulin glargine (Lantus) pen - multi-dose SQ SCH (21:00)
[2019-08-12] MEDS: oxybutynin 5mg tablet PO PRN (23:12)
--- NOTE | 2019-08-12 23:15 | NUR ---
Patient pulled IV and continues to try to get out of bed. Refuses to have nasal cannula. Paged Dr. Hauser and received orders for CXR
--- NOTE | 2019-08-12 23:35 | NUR ---
Notified Dr. Hauser of CXR completion. Received orders for ABG and Lasix 20mg IV once.
[2019-08-13] VITALS: BP 136/46
[2019-08-13] MEDS ORDERED: furosemide 20 MG/2 ML vial IV ONE (00:15)
--- NOTE | 2019-08-13 00:30 | NUR ---
Received critical ABG pO2 of 39.6. Notified Dr. Hauser. Received orders for BiPAP. Patient calm and allowed NC. O2 sats increased to 94-98% on 6l NC. RT reported that BiPAP would be unnecessary. Paged Dr. Hauser for clarification.
[2019-08-13 00:41] LABS: ABG BASE EXCESS -0.2 mmol/L (-2.0-3.0); ABG HCO3 23.8 mmol/L (22.0-26.0); ABG OXYGEN SATURATION 75.7 % (95-98); ABG PCO2 (T) 35.2 mmHg (35.0-45.0); ABG PH (T) 7.445 (7.350-7.450); ABG PO2 (T) 39.6 mmHg (83-108); FMetHb 0.3 % (0.3-1.12); FO2Hb 75.5 % (94-100); PATIENT TEMPERATURE 36.2; TOTAL HEMOGLOBIN 9.1 G/dl (14.0-17.9)
[2019-08-13] MEDS ORDERED: LORazepam 2 mg/ml vial IV ONE (01:10)
[2019-08-13] MEDS: ceFAZolin 1GM/D5W- ADD-VANTAGE 50 ML IV SCH ×4 (01:18→23:32)
--- NOTE | 2019-08-13 03:00 | NUR ---
Patient repeated grabbing at lines. Minimally redirectable, however goes back to sleep shortly. O2 sat still 94+ on 6L NC. Will continue to monitor.
--- NOTE | 2019-08-13 06:15 | NUR ---
Patient in room [facility]. I have received report from CHILANGO GONZALEZ and had the opportunity to ask questions and assume patient care.
--- NOTE | 2019-08-13 06:27 | NUR ---
Problems reprioritized. Patient report given, questions answered & plan of care reviewed with [place] KEE.
[2019-08-13 07:00] VITALS: BP 103/55
[2019-08-13] MEDS: QUEtiapine 25mg tablet PO SCH ×2 (08:00→21:34)
[2019-08-13] MEDS: lactose-reduced food (Ensure Enlive) - 237ml bottle PO SCH ×4 (08:00→21:21)
[2019-08-13] MEDS: K and/or MAG REPLACEMENT MC SCH ×2 (08:00→20:00)
[2019-08-13 08:45] LABS: BASOPHILS # (AUTO) 0.1 X10'3 (0-0.2); BASOPHILS % (AUTO) 1.6 % (0-1); EOSINOPHILS # (AUTO) 0.3 X10'3 (0-0.9); EOSINOPHILS % (AUTO) 3.4 % (0-6); HEMATOCRIT 26.9 % (42.0-52.0); HEMOGLOBIN 8.6 g/dl (14.0-17.9); LYMPHOCYTES # (AUTO) 1.9 X10'3 (1.1-4.8); LYMPHOCYTES % (AUTO) 21.2 % (21-51); MEAN CORPUSCULAR HEMOGLOBIN 30.1 PG (27.0-31.0); MEAN CORPUSCULAR HGB CONC 32.1 g/dL (33.0-36.5); MEAN CORPUSCULAR VOLUME 93.7 FL (78-98); MEAN PLATELET VOLUME 8.9 FL (7.4-10.4); MONOCYTES # (AUTO) 1.2 X10'3 (0-0.9); MONOCYTES % (AUTO) 13.3 % (2-12); NEUTROPHILS # (AUTO) 5.3 X10'3 (1.8-7.7); NEUTROPHILS % (AUTO) 60.5 % (42-75); PLATELET COUNT 434 X10'3 (140-440); RED BLOOD COUNT 2.87 X10'6 (4.70-6.10); RED CELL DISTRIBUTION WIDTH 16.9 % (11.5-14.5); WHITE BLOOD COUNT 8.8 X10'3 (4.5-11.0)
[2019-08-13 08:47] LABS: ALANINE AMINOTRANSFERASE 38 U/L (12-78); ALBUMIN 2.4 G/DL (3.4-5.0); ALBUMIN/GLOBULIN RATIO 0.5 (1.1-1.5); ALKALINE PHOSPHATASE 57 IU/L (46-116); ANION GAP 9 (8-16); ASPARTATE AMINO TRANSFERASE 32 U/L (10-37); BILIRUBIN,TOTAL 0.4 MG/DL (0.1-1.0); BLOOD UREA NITROGEN 12 MG/DL (7-18); BUN/CREATININE RATIO 9.5 (5.4-32.0); CALCIUM 8.3 MG/DL (8.5-10.1); CHLORIDE 104 MMOL/L (99-107); CREATININE 1.26 MG/DL (0.60-1.10); GLUCOSE 94 MG/DL (70-104); SODIUM 141 MMOL/L (135-145); TOTAL CARBON DIOXIDE 28.3 MMOL/L (24-32); TOTAL PROTEIN 6.8 G/DL (6.4-8.2); eGFR 57 ML/MIN
[2019-08-13] MEDS: potassium cl 20mEq in 1/2 NS 1,000 ML IV SCH (10:17)
[2019-08-13] MEDS: docusate sod 250mg capsule PO SCH ×2 (10:32→21:25)
[2019-08-13] MEDS: potassium Cl 20 mEq SR tablet PO SCH (10:32)
[2019-08-13] MEDS: furosemide 20MG tablet PO SCH (10:32)
[2019-08-13] MEDS: losartan 50mg tablet PO SCH (10:32)
[2019-08-13] MEDS: lactobacillus rhamnosus 10,000 MMU CELLS/CAPSULE PO SCH ×2 (10:32→21:34)
[2019-08-13] MEDS: famotidine 20mg tablet PO SCH ×2 (10:33→20:00)
[2019-08-13] MEDS: azithromycin 250mg tablet PO SCH (10:33)
[2019-08-13] MEDS: levoTHYROXINE 75mcg tablet PO SCH (10:33)
[2019-08-13] MEDS: allopurinol 100mg tablet PO SCH (10:33)
[2019-08-13] MEDS: PARoxetine 20mg tablet PO SCH (10:33)
[2019-08-13 11:00] VITALS: BP 103/55
--- NOTE | 2019-08-13 18:15 | NUR ---
Problems reprioritized. Patient report given, questions answered & plan of care reviewed with CHILANGO MEDRANO.
--- NOTE | 2019-08-13 18:30 | NUR ---
Patient in room [facility]. I have received report from Indiana Kaiser and had the opportunity to ask questions and assume patient care. Addendum: 08/13/19 at 1946 by Eden Salmon RN Amended: Links added.
[2019-08-13] MEDS: insulin glargine (Lantus) pen - multi-dose SQ SCH (21:00)
--- NOTE | 2019-08-13 21:00 | NUR ---
awoke took hs meds tolerated well took them in applesauce refusing to take ensure or drink much needing to push fluids.
[2019-08-13] MEDS: metoprolol succinate 25mg (24-HOUR) SR. Tablet PO SCH (21:23)
[2019-08-13] MEDS: oxybutynin 5mg tablet PO PRN (21:24)
[2019-08-13] MEDS: HYDROcodone/acetaminophen 5mg/325mg tablet PO PRN (21:25)
--- NOTE | 2019-08-13 23:02 | NUR ---
pt repositioned in bed for comfort.
--- NOTE | 2019-08-13 23:35 | NUR ---
pt confused figiting. no changes. sitter at the bedside for pt safety.
[2019-08-13 23:56] VITALS: BP 103/72
[2019-08-14] MEDS: potassium cl 20mEq in 1/2 NS 1,000 ML IV SCH ×2 (01:02→20:47)
--- NOTE | 2019-08-14 01:14 | NUR ---
pt awoke and repositioned to comfort.
--- NOTE | 2019-08-14 03:00 | NUR ---
pt resting without s&s of distress and [id number] draining medium yellow urine CBI turned down low no clots.
[2019-08-14] MEDS: HYDROcodone/acetaminophen 5mg/325mg tablet PO PRN ×2 (04:40→20:55)
--- NOTE | 2019-08-14 04:45 | NUR ---
medicatedv for pain with po norco.
--- NOTE | 2019-08-14 05:01 | NUR ---
lab in to draw blood no s&s of distress at this time.
[2019-08-14 05:55] LABS: BASOPHILS # (AUTO) 0.1 X10'3 (0-0.2); BASOPHILS % (AUTO) 0.9 % (0-1); EOSINOPHILS # (AUTO) 0.4 X10'3 (0-0.9); EOSINOPHILS % (AUTO) 5.6 % (0-6); HEMATOCRIT 25.3 % (42.0-52.0); HEMOGLOBIN 8.3 g/dl (14.0-17.9); LYMPHOCYTES # (AUTO) 2.1 X10'3 (1.1-4.8); LYMPHOCYTES % (AUTO) 26.9 % (21-51); MEAN CORPUSCULAR HEMOGLOBIN 30.8 PG (27.0-31.0); MEAN CORPUSCULAR VOLUME 93.3 FL (78-98); MEAN PLATELET VOLUME 9.4 FL (7.4-10.4); MONOCYTES # (AUTO) 0.9 X10'3 (0-0.9); NEUTROPHILS # (AUTO) 4.3 X10'3 (1.8-7.7); NEUTROPHILS % (AUTO) 54.6 % (42-75); PLATELET COUNT 425 X10'3 (140-440); RED BLOOD COUNT 2.71 X10'6 (4.70-6.10); RED CELL DISTRIBUTION WIDTH 16.8 % (11.5-14.5); WHITE BLOOD COUNT 7.9 X10'3 (4.5-11.0)
--- NOTE | 2019-08-14 06:00 | NUR ---
Problems reprioritized. Patient report given, questions answered & plan of care reviewed with Indiana Kaiser. Addendum: 08/14/19 at 0601 by Eden Salmon RN Amended: Links added.
[2019-08-14 06:14] LABS: ALANINE AMINOTRANSFERASE 32 U/L (12-78); ALBUMIN 2.1 G/DL (3.4-5.0); ALBUMIN/GLOBULIN RATIO 0.5 (1.1-1.5); ALKALINE PHOSPHATASE 54 IU/L (46-116); ANION GAP 6 (8-16); ASPARTATE AMINO TRANSFERASE 32 U/L (10-37); BILIRUBIN,TOTAL 0.3 MG/DL (0.1-1.0); BLOOD UREA NITROGEN 12 MG/DL (7-18); BUN/CREATININE RATIO 9.4 (5.4-32.0); CALCIUM 8.1 MG/DL (8.5-10.1); CHLORIDE 106 MMOL/L (99-107); CREATININE 1.27 MG/DL (0.60-1.10); GLUCOSE 94 MG/DL (70-104); POTASSIUM 4.2 MMOL/L (3.5-5.1); SODIUM 139 MMOL/L (135-145); TOTAL CARBON DIOXIDE 27.3 MMOL/L (24-32); TOTAL PROTEIN 6.4 G/DL (6.4-8.2); eGFR 56 ML/MIN
--- NOTE | 2019-08-14 06:30 | NUR ---
Patient in room [facility]. I have received report from CHILANGO MEDRANO and had the opportunity to ask questions and assume patient care.
[2019-08-14] MEDS: K and/or MAG REPLACEMENT MC SCH ×2 (08:00→20:00)
[2019-08-14 08:44] VITALS: BP 98/53
[2019-08-14] MEDS: losartan 50mg tablet PO SCH (08:59)
[2019-08-14] MEDS: docusate sod 250mg capsule PO SCH ×2 (08:59→20:53)
[2019-08-14] MEDS: ceFAZolin 1GM/D5W- ADD-VANTAGE 50 ML IV SCH (08:59)
[2019-08-14] MEDS: lactobacillus rhamnosus 10,000 MMU CELLS/CAPSULE PO SCH ×2 (08:59→20:52)
[2019-08-14] MEDS: potassium Cl 20 mEq SR tablet PO SCH (08:59)
[2019-08-14] MEDS: furosemide 20MG tablet PO SCH (09:00)
[2019-08-14] MEDS: famotidine 20mg tablet PO SCH ×2 (09:00→20:55)
[2019-08-14] MEDS: PARoxetine 20mg tablet PO SCH (09:00)
[2019-08-14] MEDS: levoTHYROXINE 75mcg tablet PO SCH (09:00)
[2019-08-14] MEDS: allopurinol 100mg tablet PO SCH (09:01)
[2019-08-14] MEDS: azithromycin 250mg tablet PO SCH (09:01)
[2019-08-14 11:26] VITALS: BP 96/47
[2019-08-14] MEDS: lactose-reduced food (Ensure Enlive) - 237ml bottle PO SCH ×2 (13:18→18:00)
--- NOTE | 2019-08-14 13:25 | NUR ---
NOW A SCIP DUE TO UROLOGICAL SURGERY Addendum: 08/14/19 at 1332 by [place] Gill RN Amended: Links added.
[2019-08-14] MEDS: cephalexin 250mg capsule PO SCH ×2 (14:34→20:54)
--- NOTE | 2019-08-14 16:17 | NUR ---
Reassessment: Patient's PO intake continues to be poor and and inadequate to meet needs. Average PO intake 25-49% PO intake with feeder and more recently 0% PO for two days and refusing ensure. Today, he did drink 100% of the Ensure with lunch. No significant BM since 08/09, has routine colace and prn milk of magnesia, notified MD recommendation ( pt without significant BM for 5 days. already has routine colace however may benefit from additional routine bowel care for regularity). .Still is confused, may contribute to his poor intake. Pt admit with sepsis secondary to UTI and CELESTINA. Pt with sitter. Acute delirium likely d/t toxic encephalopathy per MD notes. Last BM 08/09, small BMs since admission, possible constipation present. Last received milk of magnesia on 08/06, no routine bowel care. Pt may benefit from routine bowel care, notified MD. Confusion and constipation likely impacting appetite/PO intake. Recommendations: 1) Continue heart healthy diet 2) Consider routine bowel care in view of possible constipation, may benefit from more bowel care in view of continued constipation 3) Recommend Ensure Enlive TID with meals in view of suboptimal PO intake 4) Wt per rx Addendum: 08/14/19 at [address] Amended: Links added.
--- NOTE | 2019-08-14 18:41 | NUR ---
Problems reprioritized. Patient report given, questions answered & plan of care reviewed with CHILANGO MEDRANO.
--- NOTE | 2019-08-14 18:41 | NUR ---
Patient in room [facility]. I have received report from Indiana Kaiser and had the opportunity to ask questions and assume patient care. Addendum: 08/14/19 at 1841 by Eden Salmon RN Amended: Links added.
--- NOTE | 2019-08-14 19:45 | NUR ---
pt inc of liquid stool. no complaints at this time. remains confused sitter at bedside to redirect him. impulsive and not always following simple commands.
[2019-08-14 19:55] VITALS: BP 94/66
--- NOTE | 2019-08-14 20:45 | NUR ---
called to talk with pt on the phone. he remains confused but did answer a few of her questions appropriately rest he did not. after this up to bedside commode for loose stools and confused. skin care done lien change and pt took po hs meds including norco for pain with yogurt.
[2019-08-14] MEDS: metoprolol succinate 25mg (24-HOUR) SR. Tablet PO SCH (20:53)
[2019-08-14] MEDS: QUEtiapine 25mg tablet PO SCH (20:54)
[2019-08-14] MEDS: oxybutynin 5mg tablet PO PRN (20:55)
[2019-08-14] MEDS: insulin glargine (Lantus) pen - multi-dose SQ SCH (20:59)
--- NOTE | 2019-08-14 22:00 | NUR ---
resting eyes [id number] without s&s of distress.
--- NOTE | 2019-08-15 | NUR ---
pt in and out of dozing and no complaints at this time.
[2019-08-15 00:13] VITALS: BP 101/66
--- NOTE | 2019-08-15 01:14 | NUR ---
resting eyes closed without changes.
[2019-08-15] MEDS: cephalexin 250mg capsule PO SCH ×4 (02:41→20:00)
--- NOTE | 2019-08-15 02:45 | NUR ---
PT TOOK HIS ANTIBIOTIC WITH APPLESAUCE AND GREAT DEAL OF ENCOURAGEMENT. HE FINALLY TOOK IT.
--- NOTE | 2019-08-15 04:45 | NUR ---
PT RESTLESS CONFUSED AND NOT ANSWERING NURSES QUESTIONS.
[2019-08-15 06:33] LABS: BASOPHILS # (AUTO) 0.1 X10'3 (0-0.2); BASOPHILS % (AUTO) 1.1 % (0-1); EOSINOPHILS # (AUTO) 0.5 X10'3 (0-0.9); EOSINOPHILS % (AUTO) 5.7 % (0-6); HEMATOCRIT 27.9 % (42.0-52.0); HEMOGLOBIN 8.8 g/dl (14.0-17.9); LYMPHOCYTES # (AUTO) 1.7 X10'3 (1.1-4.8); LYMPHOCYTES % (AUTO) 21.1 % (21-51); MEAN CORPUSCULAR HEMOGLOBIN 29.7 PG (27.0-31.0); MEAN CORPUSCULAR HGB CONC 31.5 g/dL (33.0-36.5); MEAN CORPUSCULAR VOLUME 94.3 FL (78-98); MEAN PLATELET VOLUME 9.1 FL (7.4-10.4); MONOCYTES # (AUTO) 1.1 X10'3 (0-0.9); MONOCYTES % (AUTO) 12.9 % (2-12); NEUTROPHILS # (AUTO) 4.8 X10'3 (1.8-7.7); NEUTROPHILS % (AUTO) 59.2 % (42-75); PLATELET COUNT 431 X10'3 (140-440); RED BLOOD COUNT 2.96 X10'6 (4.70-6.10); RED CELL DISTRIBUTION WIDTH 16.8 % (11.5-14.5); WHITE BLOOD COUNT 8.2 X10'3 (4.5-11.0)
--- NOTE | 2019-08-15 06:43 | NUR ---
Problems reprioritized. Patient report given, questions answered & plan of care reviewed with KAY KEE. Addendum: 08/15/19 at 0644 by Eden Salmon RN Amended: Links added.
[2019-08-15 06:53] LABS: ANION GAP 5 (8-16); BLOOD UREA NITROGEN 15 MG/DL (7-18); BUN/CREATININE RATIO 11.5 (5.4-32.0); CALCIUM 8.4 MG/DL (8.5-10.1); CHLORIDE 107 MMOL/L (99-107); GLUCOSE 91 MG/DL (70-104); POTASSIUM 4.4 MMOL/L (3.5-5.1); SODIUM 139 MMOL/L (135-145); TOTAL CARBON DIOXIDE 27.2 MMOL/L (24-32); eGFR 55 ML/MIN
[2019-08-15 06:54] LABS: ALANINE AMINOTRANSFERASE 24 U/L (12-78); ALBUMIN 2.1 G/DL (3.4-5.0); ALBUMIN/GLOBULIN RATIO 0.5 (1.1-1.5); ALKALINE PHOSPHATASE 56 IU/L (46-116); ASPARTATE AMINO TRANSFERASE 28 U/L (10-37); BILIRUBIN,TOTAL 0.3 MG/DL (0.1-1.0); TOTAL PROTEIN 6.7 G/DL (6.4-8.2)
--- NOTE | 2019-08-15 07:05 | NUR ---
Patient in room [facility]. I have received report from Jasmina KEE and had the opportunity to ask questions and assume patient care.
[2019-08-15 07:30] VITALS: BP 97/71
[2019-08-15] MEDS: lactose-reduced food (Ensure Enlive) - 237ml bottle PO SCH ×3 (08:00→18:00)
[2019-08-15] MEDS: furosemide 20MG tablet PO SCH (08:00)
[2019-08-15] MEDS: losartan 50mg tablet PO SCH (08:00)
[2019-08-15] MEDS: K and/or MAG REPLACEMENT MC SCH ×2 (08:00→19:42)
[2019-08-15] MEDS: docusate sod 250mg capsule PO SCH ×2 (09:41→20:00)
[2019-08-15] MEDS: potassium Cl 20 mEq SR tablet PO SCH (09:41)
[2019-08-15] MEDS: lactobacillus rhamnosus 10,000 MMU CELLS/CAPSULE PO SCH ×2 (09:41→20:00)
[2019-08-15] MEDS: PARoxetine 20mg tablet PO SCH (09:42)
[2019-08-15] MEDS: levoTHYROXINE 125mcg tablet PO SCH (09:42)
[2019-08-15] MEDS: allopurinol 100mg tablet PO SCH (09:42)
[2019-08-15] MEDS: famotidine 20mg tablet PO SCH ×2 (09:42→20:00)
[2019-08-15] MEDS: azithromycin 250mg tablet PO SCH (09:42)
--- NOTE | 2019-08-15 10:59 | NUR ---
F/u: Routine Lactulose has been added to med list. Still no BM. D/w dietary to send prunes and prune juice with next meal tray. Will continue to follow. Addendum: 08/15/19 at [address] Amended: Links added.
[2019-08-15 11:31] VITALS: BP 110/69
[2019-08-15] MEDS: lactulose 20gm/30ml cup PO SCH ×2 (15:37→20:00)
--- NOTE | 2019-08-15 18:15 | NUR ---
Patient in room [facility]. I have received report from Shreya KEE and had the opportunity to ask questions and assume patient care.
--- NOTE | 2019-08-15 18:48 | NUR ---
Problems reprioritized. Patient report given, questions answered & plan of care reviewed with Ashley KEE.
[2019-08-15 20:00] VITALS: BP 109/68
[2019-08-15] MEDS: insulin glargine (Lantus) pen - multi-dose SQ SCH (21:00)
[2019-08-15] MEDS: metoprolol succinate 25mg (24-HOUR) SR. Tablet PO SCH (22:27)
--- NOTE | 2019-08-15 23:50 | NUR ---
Received report from CHILANGO Ramirez. Patient is awake and alert on 2L, in no apparent distress. Call light and items of frequent use within reach. Will continue to monitor.
[2019-08-16] VITALS: BP 114/67
--- NOTE | 2019-08-16 00:06 | NUR ---
Problems reprioritized. Patient report given, questions answered & plan of care reviewed with Kianna KEE.
[2019-08-16] MEDS: potassium cl 20mEq in 1/2 NS 1,000 ML IV SCH ×2 (00:24→18:17)
[2019-08-16] MEDS: lactulose 20gm/30ml cup PO SCH ×4 (02:00→19:23)
[2019-08-16] MEDS: cephalexin 250mg capsule PO SCH ×4 (02:15→19:27)
[2019-08-16 06:10] LABS: ALANINE AMINOTRANSFERASE 20 U/L (12-78); ALBUMIN 2.4 G/DL (3.4-5.0); ALBUMIN/GLOBULIN RATIO 0.5 (1.1-1.5); ALKALINE PHOSPHATASE 64 IU/L (46-116); ANION GAP 8 (8-16); ASPARTATE AMINO TRANSFERASE 29 U/L (10-37); BILIRUBIN,TOTAL 0.4 MG/DL (0.1-1.0); BLOOD UREA NITROGEN 11 MG/DL (7-18); BUN/CREATININE RATIO 9.8 (5.4-32.0); CALCIUM 8.9 MG/DL (8.5-10.1); CHLORIDE 105 MMOL/L (99-107); CREATININE 1.12 MG/DL (0.60-1.10); GLUCOSE 101 MG/DL (70-104); POTASSIUM 4.3 MMOL/L (3.5-5.1); SODIUM 140 MMOL/L (135-145); TOTAL CARBON DIOXIDE 27.1 MMOL/L (24-32); TOTAL PROTEIN 7.4 G/DL (6.4-8.2); eGFR 65 ML/MIN
[2019-08-16 06:16] LABS: BASOPHILS # (AUTO) 0.1 X10'3 (0-0.2); EOSINOPHILS # (AUTO) 0.4 X10'3 (0-0.9); EOSINOPHILS % (AUTO) 4.5 % (0-6); HEMATOCRIT 27.6 % (42.0-52.0); LYMPHOCYTES # (AUTO) 1.8 X10'3 (1.1-4.8); LYMPHOCYTES % (AUTO) 22.5 % (21-51); MEAN CORPUSCULAR HEMOGLOBIN 30.7 PG (27.0-31.0); MEAN CORPUSCULAR HGB CONC 32.6 g/dL (33.0-36.5); MEAN PLATELET VOLUME 8.9 FL (7.4-10.4); MONOCYTES # (AUTO) 0.9 X10'3 (0-0.9); MONOCYTES % (AUTO) 11.8 % (2-12); NEUTROPHILS # (AUTO) 4.8 X10'3 (1.8-7.7); NEUTROPHILS % (AUTO) 60.2 % (42-75); PLATELET COUNT 485 X10'3 (140-440); RED BLOOD COUNT 2.94 X10'6 (4.70-6.10); RED CELL DISTRIBUTION WIDTH 16.7 % (11.5-14.5)
--- NOTE | 2019-08-16 06:37 | NUR ---
Problems reprioritized. Patient report given, questions answered & plan of care reviewed with CHILANGO Cash.
--- NOTE | 2019-08-16 06:59 | NUR ---
Patient in room [facility]. I have received report from Kianna KEE and had the opportunity to ask questions and assume patient care.
[2019-08-16 08:00] VITALS: BP_SYST 110; BP_SYST 134; BP_DIAS 70; BP_DIAS 81
[2019-08-16] MEDS: docusate sod 250mg capsule PO SCH ×2 (08:00→19:27)
[2019-08-16] MEDS: losartan 50mg tablet PO SCH (08:00)
[2019-08-16] MEDS: K and/or MAG REPLACEMENT MC SCH ×2 (08:00→20:00)
[2019-08-16] MEDS: lactobacillus rhamnosus 10,000 MMU CELLS/CAPSULE PO SCH ×2 (08:38→19:27)
[2019-08-16] MEDS: furosemide 20MG tablet PO SCH (08:39)
[2019-08-16] MEDS: levoTHYROXINE 125mcg tablet PO SCH (08:39)
[2019-08-16] MEDS: famotidine 20mg tablet PO SCH ×2 (08:39→19:27)
[2019-08-16] MEDS: allopurinol 100mg tablet PO SCH (08:39)
[2019-08-16] MEDS: PARoxetine 20mg tablet PO SCH (08:39)
[2019-08-16] MEDS: potassium Cl 20 mEq SR tablet PO SCH (08:39)
[2019-08-16] MEDS: QUEtiapine 25mg tablet PO SCH (08:39)
[2019-08-16] MEDS: azithromycin 250mg tablet PO SCH (08:39)
[2019-08-16] MEDS: lactose-reduced food (Ensure Enlive) - 237ml bottle PO SCH ×3 (08:40→15:31)
[2019-08-16] MEDS ORDERED: CEPH250C PO (12:03)
[2019-08-16] MEDS ORDERED: LEVO125T8 PO (12:03)
[2019-08-16] MEDS ORDERED: AZI25OT PO (12:03)
[2019-08-16] MEDS ORDERED: LACT10SO32 PO (12:03)
[2019-08-16] MEDS: HYDROcodone/acetaminophen 5mg/325mg tablet PO PRN (13:26)
[2019-08-16 15:47] VITALS: BP 92/63
[2019-08-16 18:00] VITALS: BP 121/60
[2019-08-16] MEDS ORDERED: rivaroxaban 20mg tablet PO SCH (18:00)
--- NOTE | 2019-08-16 18:41 | NUR ---
Problems reprioritized. Patient report given, questions answered & plan of care reviewed with Ashley KEE.
[2019-08-16] MEDS: metoprolol succinate 25mg (24-HOUR) SR. Tablet PO SCH (21:00)
[2019-08-16] MEDS: insulin glargine (Lantus) pen - multi-dose SQ SCH (21:00)
--- NOTE | 2019-08-16 22:01 | NUR ---
O2 Sat at rest on room air:_95__% If below 89%: Recovery O2 Sat at rest on __LPM:___%:___% via (mask/nasal cannula, etc..) No further documentation is necessary. If O2 Sat did not drop below 89% on room air,ambulate patient on room air. O2 Sat while ambulating on room air:_98__% Recovery O2 Sat while ambulating on ___LPM:___% No further documentation is necessary. If patient does not drop below 89% while ambulating, he/she does not qualify for home O2.
[2019-08-17] VITALS: BP 123/76
[2019-08-17] MEDS: cephalexin 250mg capsule PO SCH ×2 (01:21→11:15)
[2019-08-17] MEDS: lactulose 20gm/30ml cup PO SCH ×2 (01:22→08:00)
[2019-08-17 05:45] LABS: BASOPHILS # (AUTO) 0.1 X10'3 (0-0.2); BASOPHILS % (AUTO) 1.4 % (0-1); EOSINOPHILS # (AUTO) 0.4 X10'3 (0-0.9); EOSINOPHILS % (AUTO) 5.3 % (0-6); HEMATOCRIT 27.6 % (42.0-52.0); LYMPHOCYTES # (AUTO) 1.7 X10'3 (1.1-4.8); LYMPHOCYTES % (AUTO) 25.3 % (21-51); MEAN CORPUSCULAR HEMOGLOBIN 30.4 PG (27.0-31.0); MEAN CORPUSCULAR HGB CONC 32.5 g/dL (33.0-36.5); MEAN CORPUSCULAR VOLUME 93.7 FL (78-98); MEAN PLATELET VOLUME 8.6 FL (7.4-10.4); MONOCYTES # (AUTO) 0.8 X10'3 (0-0.9); MONOCYTES % (AUTO) 12.3 % (2-12); NEUTROPHILS # (AUTO) 3.8 X10'3 (1.8-7.7); NEUTROPHILS % (AUTO) 55.7 % (42-75); PLATELET COUNT 466 X10'3 (140-440); RED BLOOD COUNT 2.94 X10'6 (4.70-6.10); RED CELL DISTRIBUTION WIDTH 16.9 % (11.5-14.5); WHITE BLOOD COUNT 6.9 X10'3 (4.5-11.0)
[2019-08-17 05:52] LABS: ALANINE AMINOTRANSFERASE 20 U/L (12-78); ALBUMIN 2.5 G/DL (3.4-5.0); ALBUMIN/GLOBULIN RATIO 0.5 (1.1-1.5); ALKALINE PHOSPHATASE 63 IU/L (46-116); ANION GAP 9 (8-16); ASPARTATE AMINO TRANSFERASE 31 U/L (10-37); BILIRUBIN,TOTAL 0.5 MG/DL (0.1-1.0); BLOOD UREA NITROGEN 11 MG/DL (7-18); BUN/CREATININE RATIO 8.9 (5.4-32.0); CALCIUM 8.7 MG/DL (8.5-10.1); CHLORIDE 104 MMOL/L (99-107); CREATININE 1.24 MG/DL (0.60-1.10); GLUCOSE 109 MG/DL (70-104); POTASSIUM 4.1 MMOL/L (3.5-5.1); SODIUM 137 MMOL/L (135-145); TOTAL CARBON DIOXIDE 24.1 MMOL/L (24-32); TOTAL PROTEIN 7.2 G/DL (6.4-8.2); eGFR 58 ML/MIN
--- NOTE | 2019-08-17 06:09 | NUR ---
Problems reprioritized. Patient report given, questions answered & plan of care reviewed with Shreya KEE.
--- NOTE | 2019-08-17 06:47 | NUR ---
Patient in room [facility]. I have received report from Ashley KEE and had the opportunity to ask questions and assume patient care.
[2019-08-17 07:00] VITALS: BP 132/86
[2019-08-17] MEDS: lactose-reduced food (Ensure Enlive) - 237ml bottle PO SCH (08:00)
[2019-08-17] MEDS: potassium Cl 20 mEq SR tablet PO SCH (08:00)
[2019-08-17] MEDS: furosemide 20MG tablet PO SCH (08:00)
[2019-08-17] MEDS: docusate sod 250mg capsule PO SCH (08:00)
[2019-08-17] MEDS: losartan 50mg tablet PO SCH (08:00)
[2019-08-17] MEDS ORDERED: CEPH250C PO (11:00)
[2019-08-17] MEDS ORDERED: HYDR-4383 PO (11:00)
[2019-08-17] MEDS: lactobacillus rhamnosus 10,000 MMU CELLS/CAPSULE PO SCH (11:14)
[2019-08-17] MEDS: famotidine 20mg tablet PO SCH (11:14)
[2019-08-17] MEDS: QUEtiapine 25mg tablet PO SCH (11:15)
[2019-08-17] MEDS: allopurinol 100mg tablet PO SCH (11:15)
[2019-08-17] MEDS: PARoxetine 20mg tablet PO SCH (11:15)
[2019-08-17] MEDS: levoTHYROXINE 125mcg tablet PO SCH (11:15)
[2019-08-17] MEDS: azithromycin 250mg tablet PO SCH (11:16)
--- NOTE | 2019-08-17 11:35 | NUR ---
Pt DC to home. Pt is A & O x3. Pt is in no apparent distress, anxious to go home since he has been here for a long time. Pt Verbalizes understanding of all DC orders and the importance to follow up with Dr. Kraus/urologist and PCP. Pt going home with Cameron for another week. Pt able to show how to empty Cameron bag states he had a Cameron before. Pt had all belongings packed and was wheeled to the front of the hospital for to pick him up. Spoke to and brought her up to speed. stated she has taken care of pt for 50 years. pt carried out the prescriptions to be filled at the [facility].
== END 2019-08-17 11:35 | disposition home or self-care (01) | DRG 656 ==
LOC: ER 11:14 → ED HOLD 19:22 → SUR 3N 20:58 → PACU 08-12 09:35 → SUR 3N 08-12 12:40
PROVIDERS: ADMIT Internal Medicine; ATTEND Internal Medicine
PROC: 0TJB8ZZ Inspection of Bladder, Via Natural or Artificial Opening Endoscopic (ICD-10-PCS; principal; 2019-08-11)
PROC: 0T768DZ Dilation of Right Ureter with Intraluminal Device, Via Natural or Artificial Opening Endoscopic (ICD-10-PCS; 2019-08-12)
PROC: 0TBB8ZZ Excision of Bladder, Via Natural or Artificial Opening Endoscopic (ICD-10-PCS; 2019-08-12)
PROC: BT1D1ZZ Fluoroscopy of Right Kidney, Ureter and Bladder using Low Osmolar Contrast (ICD-10-PCS; 2019-08-12)
DX: C67.9 Malignant neoplasm of bladder, unspecified (principal); E43 Unspecified severe protein-calorie malnutrition; N30.01 Acute cystitis with hematuria; D62 Acute posthemorrhagic anemia; E87.2 Acidosis; I13.0 Hypertensive heart and chronic kidney disease with heart failure and stage 1 through stage 4 chronic kidney disease, or unspecified chronic kidney disease; J98.11 Atelectasis; N17.9 Acute kidney failure, unspecified; I95.89 Other hypotension; Z88.8 Allergy status to other drugs, medicaments and biological substances; E78.5 Hyperlipidemia, unspecified; I50.9 Heart failure, unspecified; Z87.891 Personal history of nicotine dependence; F12.90 Cannabis use, unspecified, uncomplicated; E03.9 Hypothyroidism, unspecified; I48.91 Unspecified atrial fibrillation; J30.9 Allergic rhinitis, unspecified; K57.90 Diverticulosis of intestine, part unspecified, without perforation or abscess without bleeding; Z86.73 Personal history of transient ischemic attack (TIA), and cerebral infarction without residual deficits; E61.1 Iron deficiency; E66.01 Morbid (severe) obesity due to excess calories; E11.22 Type 2 diabetes mellitus with diabetic chronic kidney disease; E78.00 Pure hypercholesterolemia, unspecified; F43.10 Post-traumatic stress disorder, unspecified; H54.8 Legal blindness, as defined in USA; J44.9 Chronic obstructive pulmonary disease, unspecified; N18.9 Chronic kidney disease, unspecified; Z68.31 Body mass index [BMI] 31.0-31.9, adult
CPT/HCPCS: 36415; 36600; 70450; 70486; 70551; 71045; 74176; 76000; 76775; 76937; 80048; 80053; 80061; 80202; 81001; 82140; 82272; 82607; 82728; 82803; 82948; 83036; 83540; 83550; 83605; 83735; 83880; 84145; 84439; 84443; 85018; 85025; 85610; 85730; 86885; 86900; 86901; 87040; 87081; 87088; 93005; 93306; 96365; 96366; 96368; 96375; 97110; 97116; 97161; 97530; 99285; A4355; A4618; C1769; C2617; G0378; J0360; J0690; J0696; J1170; J1644; J1815; J1940; J2060; J2270; J2370; J2405; J2704; J2710; J3010; J3370; J3480; J3490; J7030; J7040; J7120; Q9967